=== PATIENT | female | born 1970 | race Caucasian/White ===

== ENCOUNTER 2017-01-20 08:44 | Emergency (ER) | payer MEDICARE, MEDICAID ==
[~2017-01-20] VITALS: Ht 154.9 cm; Wt 74.7 kg
[~2017-01-20 08:44] MED LIST: AMLO2.5T45 PO; BUME0.5T3 PO; ERGO500013 PO; FLUO20CA33 PO; GLIP5TAB12 PO; INSLAN; INSU100I7; LISI1TAB11 PO; METO-385 PO; OCD PO; PROC10TA PO
[2017-01-20 10:33] LABS: INR 1.1; PARTIAL THROMBOPLASTIN TIME 27.2 sec (23.4-31.0); PROTHROMBIN TIME 11.2 sec (9.4-11.6)
[2017-01-20 10:34] LABS: HEMATOCRIT. 37.3 % (36.0-48.0); HEMOGLOBIN. 12.4 g/dL (12.0-16.0); MEAN CORPUSCULAR HEMOGLOBIN 31.6 pg (28.0-32.0); MEAN CORPUSCULAR VOLUME 95.2 fL (81.0-99.0); MEAN PLATELET VOLUME 9.5 fl (7.4-10.4); PLATELET 189 x1000/uL (130-400); RED BLOOD CELL COUNT 3.92 mill/uL (4.2-5.4); RED CELL DISTRIBUTION WIDTH 14.4 % (11.6-14.6)
[2017-01-20 10:43] LABS: CARBON DIOXIDE 24 mEq/L (21-32); CHLORIDE 103 mEq/L (98-107); TROPONIN I < 0.02 ng/mL (0.00-0.04)
[2017-01-20 11:11] VITALS: BP 152/76
[2017-01-20 11:21] LABS: PLATELET ESTIMATE NORMAL
== END 2017-01-20 11:28 | disposition home or self-care (01) ==
LOC: ER 09:52
DX: R06.00 Dyspnea, unspecified (principal); I12.9 Hypertensive chronic kidney disease with stage 1 through stage 4 chronic kidney disease, or unspecified chronic kidney disease; E11.22 Type 2 diabetes mellitus with diabetic chronic kidney disease; N18.9 Chronic kidney disease, unspecified; F32.9 Major depressive disorder, single episode, unspecified; F17.200 Nicotine dependence, unspecified, uncomplicated; Z79.4 Long term (current) use of insulin; Z99.2 Dependence on renal dialysis
CPT/HCPCS: 36415; 71010; 80053; 83690; 84484; 85025; 85610; 85730; 93005; 99285

== ENCOUNTER 2017-01-28 18:41 | Emergency (ER) | payer MEDICARE, MEDICAID ==
[~2017-01-28] VITALS: Ht 162.6 cm; Wt 72.0 kg
[2017-01-28 19:08] VITALS: BP 128/82
[2017-01-28] MEDS ORDERED: ACETAMINOPHEN 500MG TABLET PO ONE (19:15)
[2017-01-28] MEDS ORDERED: LIDOCAINE HCL 1% 20ML VIAL (Pyxis) INJ MC ONE (19:15)
== END 2017-01-28 19:58 | disposition home or self-care (01) ==
LOC: ER 18:56
DX: S01.111A Laceration without foreign body of right eyelid and periocular area, initial encounter (principal); S00.83XA Contusion of other part of head, initial encounter; W22.09XA Striking against other stationary object, initial encounter; Y93.01 Activity, walking, marching and hiking; Y92.89 Other specified places as the place of occurrence of the external cause; F32.9 Major depressive disorder, single episode, unspecified; I12.9 Hypertensive chronic kidney disease with stage 1 through stage 4 chronic kidney disease, or unspecified chronic kidney disease; E11.22 Type 2 diabetes mellitus with diabetic chronic kidney disease; N18.9 Chronic kidney disease, unspecified; Z79.4 Long term (current) use of insulin; Z99.2 Dependence on renal dialysis
CPT/HCPCS: 12011; 99283; J3490

== ENCOUNTER 2017-07-10 11:18 | Emergency (ER) | payer MEDICARE, MEDICAID ==
[~2017-07-10] VITALS: Ht 162.6 cm; Wt 74.0 kg
[2017-07-10 12:06] LABS: CHLORIDE 96 mEq/L (98-107); PROTHROMBIN TIME 10.7 sec (9.4-11.6)
[2017-07-10 12:07] LABS: BASOPHILS % 1.4 % (0.0-2.0); EOSINOPHILS % 2.2 % (0.0-5.0); HEMOGLOBIN. 12.2 g/dL (12.0-16.0); LYMPHOCYTES % 13.8 % (20.0-50.0); MEAN CORPUSCULAR HEMOGLOBIN 32.8 pg (28.0-32.0); MEAN CORPUSCULAR VOLUME 96.9 fL (81.0-99.0); MEAN PLATELET VOLUME 9.1 fl (7.4-10.4); MONOCYTES % 8.7 % (2.0-8.0); NEUTROPHILS % 73.9 % (40.0-76.0); PLATELET 191 x1000/uL (130-400); RED BLOOD CELL COUNT 3.71 mill/uL (4.2-5.4); RED CELL DISTRIBUTION WIDTH 15.9 % (11.6-14.6)
[2017-07-10] MEDS ORDERED: HYDRALAZINE 20MG/ML VIAL IV ONE (12:15)
[2017-07-10] MEDS: ACETAMINOPHEN 325MG TABLET PO ONE ×2 (13:45→14:17)
[2017-07-10] MEDS: DIPHENHYDRAMINE 50MG/ML VIAL IV ONE ×2 (13:45→14:17)
[2017-07-10] MEDS: PROCHLORPERAZINE 10MG/2ML VIAL IV ONE ×2 (13:45→14:36)
[2017-07-10 14:36] VITALS: BP 191/108
== END 2017-07-10 15:20 | disposition left against medical advice (07) ==
LOC: ER 11:18 → EDBEDREQTM 14:03 → EDBEDREQ 14:03 → ER 15:20 → CANBEDREQ 15:36
DX: I16.0 Hypertensive urgency (principal); I12.0 Hypertensive chronic kidney disease with stage 5 chronic kidney disease or end stage renal disease; E11.22 Type 2 diabetes mellitus with diabetic chronic kidney disease; N18.6 End stage renal disease; Z91.15 Patient's noncompliance with renal dialysis; D63.1 Anemia in chronic kidney disease; F41.9 Anxiety disorder, unspecified; E87.1 Hypo-osmolality and hyponatremia; E11.65 Type 2 diabetes mellitus with hyperglycemia; E11.39 Type 2 diabetes mellitus with other diabetic ophthalmic complication; H54.61 Unqualified visual loss, right eye, normal vision left eye; E88.09 Other disorders of plasma-protein metabolism, not elsewhere classified; Z91.19 Patient's noncompliance with other medical treatment and regimen; Z99.2 Dependence on renal dialysis; Z79.4 Long term (current) use of insulin; Z86.59 Personal history of other mental and behavioral disorders; Z79.899 Other long term (current) drug therapy
CPT/HCPCS: 36415; 70450; 80053; 85025; 85610; 93005; 96374; 96375; 99285; J0360; J0780; J1200